=== PATIENT | male | born 1970 | race Caucasian/White ===

== ENCOUNTER 2016-08-13 19:11 | Emergency (ER) | payer OTHER ==
--- NOTE | 2016-08-13 20:58 | PD ---
HPI Chief Complaint: Psychiatric Symptoms Time Seen by Provider: 20:54 Travel History International Travel<30 days: No Contact w/Intl Traveler<30days: No Traveled to known affect area: No History of Present Illness HPI 46-year-old male that presents to the ED for evaluation of Cabrera act. Patient was Cabrera acted by police after he was found to be very paranoid and making some bizarre statements. Patient apparently hold scissors to onlookers. Patient states that he's been using meth today. Per patient he injects. He denies any other medical problems. He denies any history of suicidal or homicidal ideation. No chest pain. Patient takes no other medications. He denies ever being Cabrera acted before. He does tell me that he does use drugs especially meth. He does appear to be somewhat paranoid my examination. No other medical problems. Symptoms have been ongoing and became more severe today. PFSH Past Medical History Depression: Yes Diminished Hearing: No Tetanus Vaccination: Unknown ?: Not Social History Alcohol Use: No Tobacco Use: No Substance Use: Yes (LAST USED METH THIS AM) Allergies-Medications (Allergen,Severity, Reaction): Coded Allergies: No Known Allergies (Unverified , 08/13/16) Review of Systems Except as stated in HPI: all other systems reviewed are Neg Physical Exam Narrative GENERAL: SKIN: Warm and dry. HEAD: Atraumatic. Normocephalic. EYES: Pupils equal and round. No scleral icterus. No injection or drainage. ENT: No nasal bleeding or discharge. Mucous membranes pink and moist. Tongue is midline. No uvula deviation. NECK: Trachea midline. No JVD. CARDIOVASCULAR: Regular rate and rhythm. No murmurs, S3, S4. RESPIRATORY: No accessory muscle use. Clear to auscultation. Breath sounds equal bilaterally. GASTROINTESTINAL: Abdomen soft, non-tender, nondistended. Hepatic and splenic margins not palpable. MUSCULOSKELETAL: Extremities without clubbing, cyanosis, or edema. No obvious deformities. Full range of motion of the upper and lower extremities bilaterally. 2+ pulses bilaterally. NEUROLOGICAL: Awake and alert. No obvious cranial nerve deficits. Motor grossly within normal limits. Five out of 5 muscle strength in the arms and legs. Normal speech. PSYCHIATRIC: Somewhat paranoid mood and affect; insight and judgment normal. Data Data Orders Complete Blood Count With Diff (08/13/16 19:50) Comprehensive Metabolic Panel (08/13/16 19:50) Psych Screen (08/13/16 19:50) Drug Screen, Random Urine (08/13/16 19:50) Alcohol (Ethanol) (08/13/16 19:50) Salicylates (Aspirin) (08/13/16 19:50) Tylenol (Acetaminophen) (08/13/16 19:50) Labs Laboratory Tests Test 08/13/16 08/13/16 20:00 20:20 Urine Opiates Screen NEG Urine Barbiturates Screen NEG Urine Amphetamines Screen POS Urine Benzodiazepines Screen NEG Urine Cocaine Screen NEG Urine Cannabinoids Screen NEG White Blood Count 14.4 TH/MM3 Red Blood Count 5.50 MIL/MM3 Hemoglobin 16.5 GM/DL Hematocrit 48.4 % Mean Corpuscular Volume 88.0 FL Mean Corpuscular Hemoglobin 30.1 PG Mean Corpuscular Hemoglobin 34.2 % Concent Red Cell Distribution Width 13.4 % Platelet Count 256 TH/MM3 Mean Platelet Volume 9.4 FL Neutrophils (%) (Auto) 76.4 % Lymphocytes (%) (Auto) 15.6 % Monocytes (%) (Auto) 7.2 % Eosinophils (%) (Auto) 0.3 % Basophils (%) (Auto) 0.5 % Neutrophils # (Auto) 11.0 TH/MM3 Lymphocytes # (Auto) 2.2 TH/MM3 Monocytes # (Auto) 1.0 TH/MM3 Eosinophils # (Auto) 0.0 TH/MM3 Basophils # (Auto) 0.1 TH/MM3 CBC Comment DIFF FINAL Differential Comment Sodium Level 141 MEQ/L Potassium Level 3.9 MEQ/L Chloride Level 103 MEQ/L Carbon Dioxide Level 30.3 MEQ/L Anion Gap 8 MEQ/L Blood Urea Nitrogen 12 MG/DL Creatinine 1.23 MG/DL Estimat Glomerular Filtration 64 ML/MIN Rate Random Glucose 90 MG/DL Calcium Level 9.3 MG/DL Total Bilirubin 0.7 MG/DL Aspartate Amino Transf 23 U/L (AST/SGOT) Alanine Aminotransferase 39 U/L (ALT/SGPT) Alkaline Phosphatase 93 U/L Total Protein 8.1 GM/DL Albumin 3.9 GM/DL Salicylates Level LESS THAN 1.7 MG/DL Acetaminophen Level LESS THAN 2.0 MCG/ML Ethyl Alcohol Level 6 MG/DL MDM Medical Decision Making Medical Screen Exam Complete: Yes Emergency Medical Condition: Yes Medical Record Reviewed: Yes Interpretation(s) CBC & BMP Diagram 08/13/16 20:20 tox positive for alcohol and amphetamines Differential Diagnosis Depression versus suicidal ideation versus anxiety versus adjustment disorder versus mood disorder versus bipolar disorder versus schizophrenia versus paranoid disorder versus psychosis versus substance abuse versus alcohol abuse versus alcohol induced psychosis versus homicidality addition versus cutting versus personality disorder Narrative Course 46-year-old male that presents to the ED for evaluation of Cabrera act. Patient was properly examined and was found to have signs and symptoms consistent with appears to be substance abuse and psychiatric illness. No sign of acute medical distress. Labs will be drawn. Patient will be medically clear. Okay to be seen by psych. Mental health screening was discussed with the patient. Diagnosis Primary Impression: Substance induced mood disorder Gabe Goodrich Aug 13, 2016 20:58
[2016-08-13 21:13] LABS: BASOPHIL # 0.1 TH/MM3 (0-0.2); BASOPHIL % 0.5 % (0.0-2.0); EOSINOPHIL % 0.3 % (0.0-4.0); HEMATOCRIT 48.4 % (39.0-51.0); HEMO FLAGS DIFF FINAL; LYMPH % 15.6 % (9.0-44.0); LYMPHOCYTE # 2.2 TH/MM3 (1.0-4.8); MEAN CORPUSCULAR HEMOGLOBIN 30.1 PG (27.0-34.0); MEAN CORPUSCULAR HGB CONC 34.2 % (32.0-36.0); MONO % 7.2 % (0.0-8.0); NEUT % 76.4 % (16.0-70.0); PLATELET COUNT 256 TH/MM3 (150-450); RED CELL DISTRIBUTION WIDTH 13.4 % (11.6-17.2); WHITE BLOOD COUNT 14.4 TH/MM3 (4.0-11.0)
[2016-08-13 21:17] LABS: AMPHETAMINE, URINE POS (NEG); BARBITURATES, URINE NEG (NEG); COCAINE, URINE NEG (NEG)
[2016-08-13 21:27] LABS: ANION GAP 8 MEQ/L (5-15)
[2016-08-13 21:30] LABS: ALKALINE PHOSPHATASE 93 U/L (45-117); ALT (GPT) 39 U/L (12-78); AST (GOT) 23 U/L (15-37); BICARBONATE 30.3 MEQ/L (21.0-32.0); BLOOD UREA NITROGEN 12 MG/DL (7-18); CHLORIDE 103 MEQ/L (98-107); GLOMERULAR FILTRATION RATE 64 ML/MIN (>89); POTASSIUM 3.9 MEQ/L (3.5-5.1); SODIUM (NA) 141 MEQ/L (136-145); TOTAL BILIRUBIN ADULT 0.7 MG/DL (0.2-1.0)
[2016-08-13 21:36] LABS: ACETAMINOPHEN LESS THAN 2.0 MCG/ML (10.0-30.0)
[2016-08-13 22:16] VITALS: BP 170/102; PULSE 110; RESP 18; O2SAT 98
[2016-08-14 02:23] VITALS: BP 132/93; PULSE 95; RESP 18; O2SAT 99
[2016-08-14 06:42] VITALS: BP 141/102; PULSE 90; RESP 18; O2SAT 100
--- NOTE | 2016-08-14 12:38 | PD ---
History of Present Illness Chief Complaint: Psychiatric Symptoms Time Seen by Provider: 11:40 Travel History International Travel<30 Days: No Contact w/Intl Traveler<30days: No Known affected area: No Legal Status Legal Status: Cabrera Act Cabrera Act Signed By: Jonathan Ford History of Present Illness: History of Present Illness HPI 46-year-old male with history of amphetamine abuse that presents to the ED under a BA initiated by [facility]. Patient was Cabrera acted after he was found to be very paranoid and making some bizarre statements.He also allegedly threatened people with scissors while he was in a bank. Patient apparently hold scissors to onlookers as well as reporting that he had a bomb in his shoe. This in context of amphetamine use and intoxication. As per Ed documentation he reported that he had been using using meth today. Per patient he injects. EMR is reviewed. The patient has not had contact with [facility] psychiatry. His current toxicology is positive for methamphetamines. Patient was monitored in [facility] pod and he presented no behavioral concerns. he was observed this morning interacting appropriately and made his needs known in appropriate manner. He is awake, alert and oriented. Speech is clear. He is suspicious about the drugs that he has been using and he believes that he is being sold other substances instead of the methamphetamine. Patient at this time is not psychotic. he denies any suicidal richard homicidal ideation, intent or plan. In terms of events leading to the BA he remembers having used and becoming paranoid and afraid that someone was going to take his money. he then went to the bank and asked to speak with the police. the bank told him they were going to call security and then he said he had a bomb so that the police would be called. He also states that his friends and family members get him the amphetamines. He tells me that he has been using meth for approximately 4 years and uses most days of the week. In terms of psychiatric hx he reports he went to [facility] once for an appointment and was prescribed Wellbutrin but that he does not take it every day. Telephone call from his mother. She is concerned that we are not holding him here for treatment of his drug use. I have informed her that we do not provide substance abuse treatment and that he will be provided with the resources for such. PFSH Past Medical History Depression: Yes Diminished Hearing: No Tetanus Vaccination: Unknown ?: Not Psychiatric History Psychiatric History Hx Psychiatric Treatment: HX OF DEPRESSION History of Inpatient Treatment: No Guns or firearms in home: No Social History Single male. lives with is aunt. On disability for back issues. Hx Alcohol Use: No Hx Tobacco Use: No Hx Substance Use: Yes Substance Use Type: Alcohol, Marijuana, Amphetamines-Stimulants, Cocaine Other Substances Used: IV METH ABUSE Hx of Substance Use Treatment: No Family Psychiatric History None reported. Allergies-Medications (Allergen,Severity, Reaction): Coded Allergies: No Known Allergies (Unverified , 08/13/16) Reported Meds & Prescriptions Reported Meds & Active Scripts Active No Active Prescriptions or Reported Medications Review of Systems Musculoskeletal: COMPLAINS OF: Back pain Exam Alert: Yes Clute: Person (ox4) Mood: Anxious Affect: Appropriate Speech: Clear, Logical Eye Contact: Normal Memory Intact: Comment (no impairment) Hallucinations: Other (none at present) Delusions: No Delusion Type: Other (suspicious of the people selling him drugs.) Suicidal: Ideation (denies any) Homicidal: Ideation (denies any) Insight/Judgement poor. poor MDM Medical Decision Making Medical Record Reviewed: Yes Assessment/Plan 46 year old male with history of amphetamine abuse with amphetamine related psychosis who presents under a BA . Patient under the influence of meth when he went into a bank and allegedly threatened someone with scissors as well as telling the police he had a bomb in his shoe. Patient at this time is not psychotic. he unfortunately is not accepting responsibility for his drug use and justifies it by saying he needs to use it in order to have energy to do things. I have provided extensive psychoeducation as well as he will be provided with the resources in the community for substance abuse treatment. Orders Complete Blood Count With Diff (08/13/16 19:50) Comprehensive Metabolic Panel (08/13/16 19:50) Psych Screen (08/13/16 19:50) Drug Screen, Random Urine (08/13/16 19:50) Alcohol (Ethanol) (08/13/16 19:50) Salicylates (Aspirin) (08/13/16 19:50) Tylenol (Acetaminophen) (08/13/16 19:50) Diet Regular Basic (08/14/16 Breakfast) Diet Regular Basic (08/14/16 Lunch) Results Vital Signs Date Time Temp Pulse Resp B/P Pulse Ox O2 Delivery O2 Flow Rate FiO2 08/14/16 06:42 90 18 141/102 100 08/14/16 02:23 95 18 132/93 99 Room Air 08/13/16 22:16 110 18 170/102 98 Laboratory Tests Test 08/13/16 08/13/16 20:00 20:20 Urine Opiates Screen NEG Urine Barbiturates Screen NEG Urine Amphetamines Screen POS Urine Benzodiazepines Screen NEG Urine Cocaine Screen NEG Urine Cannabinoids Screen NEG White Blood Count 14.4 Red Blood Count 5.50 Hemoglobin 16.5 Hematocrit 48.4 Mean Corpuscular Volume 88.0 Mean Corpuscular Hemoglobin 30.1 Mean Corpuscular Hemoglobin 34.2 Concent Red Cell Distribution Width 13.4 Platelet Count 256 Mean Platelet Volume 9.4 Neutrophils (%) (Auto) 76.4 Lymphocytes (%) (Auto) 15.6 Monocytes (%) (Auto) 7.2 Eosinophils (%) (Auto) 0.3 Basophils (%) (Auto) 0.5 Neutrophils # (Auto) 11.0 Lymphocytes # (Auto) 2.2 Monocytes # (Auto) 1.0 Eosinophils # (Auto) 0.0 Basophils # (Auto) 0.1 CBC Comment DIFF FINAL Differential Comment Sodium Level 141 Potassium Level 3.9 Chloride Level 103 Carbon Dioxide Level 30.3 Anion Gap 8 Blood Urea Nitrogen 12 Creatinine 1.23 Estimat Glomerular Filtration 64 Rate Random Glucose 90 Calcium Level 9.3 Total Bilirubin 0.7 Aspartate Amino Transf 23 (AST/SGOT) Alanine Aminotransferase 39 (ALT/SGPT) Alkaline Phosphatase 93 Total Protein 8.1 Albumin 3.9 Salicylates Level LESS THAN 1.7 Acetaminophen Level LESS THAN 2.0 Ethyl Alcohol Level 6 Diagnosis Primary Impression: Substance induced mood disorder 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
== END 2016-08-14 14:22 | disposition home or self-care (01) ==
LOC: NEDAMB 19:11 → NEPJ 08-14 14:22
DX: F15.150 Other stimulant abuse with stimulant-induced psychotic disorder with delusions (principal)
CPT/HCPCS: 80053; 80307; 85025; 99285